=== PATIENT | female | born 1965 | race Caucasian/White ===

== ENCOUNTER 2024-08-12 10:24 | Emergency (ER) | payer OTHER, SELFPAY ==
[2024-08-12 10:37] VITALS: BP 128/60; PULSE 93; RESP 16; TEMP 36.9; O2SAT 100; BMI 20.5
--- NOTE | 2024-08-12 12:33 | ED.RECABL ---
HPI - Recheck/Abnormal Lab/Rx <Cande Mcneil PA-C - Last Filed: 08/12/24 14:18> General Chief Complaint: Recheck/Abnormal Lab/Rx Stated Complaint: medication refill Time Seen by Provider: 08/12/24 11:42 Source: patient Mode of arrival: Family Vehicle History of Present Illness HPI narrative: Ms. Martinez is a 58-year-old female with a past medical history of ADHD, anxiety, bipolar, itching, mood disorder, nicotine abuse, PTSD, suicidal ideation in the past who presents to the emergency department for medication refill. Patient was hospitalized in [place] last month for a suicide attempt and was started on numerous mental health medications. She just moved here to [facility]) because she has family in the area. She has not been able to establish care with a primary care doctor yet and needs refills of multiple medications including Xanax, Ritalin, Lexapro, lamotrigine, Risperdal, Effexor. She ran out of these medications 2 days ago. She attempted to go to clinics in [place] what they sent her to the Er for refills. She denies any symptoms at this time, no SI or HI. Related Data Previous Rx's Medication Instructions Recorded escitalopram oxalate 20 mg tablet 20 mg PO DAILY 30 days #30 tabs 08/12/24 lamotrigine 25 mg tablet 50 mg (2 x 25 mg) PO DAILY 30 days 08/12/24 #60 tabs risperidone 1 mg tablet 1 mg PO BID 30 days #60 tabs 08/12/24 venlafaxine 150 mg 150 mg PO DAILY #30 caps 08/12/24 capsule,extended release 24 hr Allergies Allergy/AdvReac Type Severity Reaction Status Date / Time Sulfa (Sulfonamide Allergy Hives Verified 08/12/24 10:41 Antibiotics) erythromycin base AdvReac Vomiting Verified 08/12/24 10:41 Review of Systems <Cande Mcneil PA-C - Last Filed: 08/12/24 14:18> Review of Systems ROS Unobtainable: All systems reviewed & are unremarkable except as noted in HPI and below Patient History <Cande Mcneil PA-C - Last Filed: 08/12/24 14:18> Social History Smoking Status: Former smoker Smoking Status: Former smoker tobacco type: cigarettes Exam <Cande Mcneil PA-C - Last Filed: 08/12/24 14:18> Narrative Exam Narrative: GENERAL: 58 year old patient appears stated age. Well-developed patient, in no acute distress. HEAD: Atraumatic. Normocephalic. NECK: Trachea midline. Cervical ROM intact. CARDIOVASCULAR: Regular rate RESPIRATORY: ?Nonlabored respirations. ?Speaking in clear, full sentences. NEURO: AOx3. ?Clear speech. ?Moves all 4 extremities appropriately. Good insight and judgment. SKIN: No rash or erythema of visible areas Initial Vital Signs Initial Vital Signs: Vital Signs Temperature 98.5 F 08/12/24 10:37 Pulse Rate 93 H 08/12/24 10:37 Respiratory Rate 16 08/12/24 10:37 Blood Pressure 128/60 08/12/24 10:37 Pulse Oximetry 100 08/12/24 10:37 Oxygen Delivery Method Room Air 08/12/24 10:37 <Rosy Dowd DO - Last Filed: 08/13/24 19:36> Initial Vital Signs Initial Vital Signs: Vital Signs Temperature 98.5 F 08/12/24 10:37 Pulse Rate 93 H 08/12/24 10:37 Respiratory Rate 16 08/12/24 10:37 Blood Pressure 128/60 08/12/24 10:37 Pulse Oximetry 100 08/12/24 10:37 Oxygen Delivery Method Room Air 08/12/24 10:37 Course <Cande Mcneil PA-C - Last Filed: 08/12/24 14:18> Orders Ordered: ED Orders 08/12/24 12:53 Consult to [facility] - [employer] Stat Vital Signs Vital signs: Vital Signs - 8 hr 08/12/24 10:37 Temperature 98.5 F Pulse Rate 93 H Respiratory Rate 16 Blood Pressure 128/60 Pulse Oximetry 100 Oxygen Delivery Method Room Air <Rosy Dowd DO - Last Filed: 08/13/24 19:36> Orders Ordered: ED Orders 08/12/24 12:53 Consult to [facility] - [employer] Mechanic Stat Vital Signs Vital signs: Vital Signs - 8 hr 08/12/24 10:37 Temperature 98.5 F Pulse Rate 93 H Respiratory Rate 16 Blood Pressure 128/60 Pulse Oximetry 100 Oxygen Delivery Method Room Air MDM - Recheck/Abnormal Lab/Rx <Cande Mcneil PA-C - Last Filed: 08/12/24 14:18> [facility] Narrative Medical decision making narrative: 58-year-old female with a past medical history of ADHD, anxiety, bipolar, itching, mood disorder, nicotine abuse, PTSD, suicidal ideation in the past who presents to the emergency department for medication refill. Patient was hospitalized in [place] last month for a suicide attempt and was started on numerous mental health medications. She just moved here to [facility]) because she has family in the area. She has not been able to establish care with a primary care doctor yet and needs refills of multiple medications including Xanax, Ritalin, Lexapro, lamotrigine, Risperdal, Effexor, Fiorcet. Differential diagnosis includes but is not limited to medication refill, withdrawal, etc. On exam patient is in no acute distress, nontoxic appearing, good insight and judgment, no SI or HI. She is requesting medication refills. Discussed with medication that is not appropriate refill benzodiazepines and stimulants in the emergency department. Reviewed all for hospital discharge paperwork confirming doses of all medications. Xanax was only prescribed for 7 days and was not meant to be long-term medication. Discussed with the patient that is not appropriate to refill methylphenidate I am unable to monitor patient. However did place a social work consult to try to get patient in urgently with the primary care doctor for all of her chronic medications to be reviewed and refilled. We will refill noncontrolled medications at this time including lamotrigine, risperidone, venlafaxine. Social work met with patient and placed referrals for primary care doctor and mental health doctor. Discussed strict ED return precautions with the patient, advised follow up with PCP. She verbalized understanding of all information is agreeable with the plan. She is stable for discharge home, requesting discharge home. Discharge Plan Departure Patient Disposition: Home Clinical Impression: Encounter for medication refill Activity Restrictions/Additional Instructions: Thank you for coming to the emergency department. Today you were evaluated for medication refills. I refilled escitalopram, venlafaxine, lamotrigine, risperidone. It is very important that you follow up with the primary care doctor to continue these refills and to refill any additional medications that you may need. Please follow up with your primary care doctor within the next 2-3 days for ER follow-up. (If you do not have a PCP you can call [phone]. ?to schedule an appointment with an [facility] Primary Care Provider) IF YOU DEVELOP ANY NEW OR WORSENING SYMPTOMS, RETURN TO THE ER! Please read the attached instructions, they highlight more specific treatments and interventions for you at home. Thank you for letting me participate in your care, Cande Mcneil PA-C Prescriptions: New venlafaxine 150 mg capsule,extended release 24hr 150 mg PO DAILY Qty: 30 0RF lamotrigine 25 mg tablet 50 mg PO DAILY 30 Days Qty: 60 0RF risperidone 1 mg tablet 1 mg PO BID 30 Days Qty: 60 0RF escitalopram oxalate 20 mg tablet 20 mg PO DAILY 30 Days Qty: 30 0RF Stand Alone Forms: Patient Portal/API/Survey ED Sign-out <Rosy Dowd DO - Last Filed: 08/13/24 19:36> Cosign ED Attending Koffiature Attestation: I was immediately available in the department for consultation.
--- NOTE | 2024-08-12 14:06 | CM.SWNOTE ---
ED CLINICAL DOCUMENTATION DEVELOPER Assessment Note: Pt is a 58yo female, resident of [place], is seen in the ED for request for medication refill. Pt has recently moved from [place]. Pt does not have a PCP established and insurance is Welfare [place] of state at this time. Reviewed chart and discussed with multidisciplinary team pt's medical status and initial discharge needs. CLINICAL DOCUMENTATION DEVELOPER consulted to assist with PCP establishment and possible MH Provider referral. CLINICAL DOCUMENTATION DEVELOPER entered room to meet with patient, introduced self and role. Pt endorses she is in the process of establishing with providers in the area. CLINICAL DOCUMENTATION DEVELOPER provided [facility] Finder contact information for pt to establish insurance. Pt also hopeful to establish with PCP and MH Provider to follow up on psych medications. Pt states she has no preference in provider or appointment time, CLINICAL DOCUMENTATION DEVELOPER sent message to Transitional Care Management Team and was requested that pt call the clinic number to establish care. Pt was provided with Clinic contact information. CLINICAL DOCUMENTATION DEVELOPER placed referral to [facility] in [place] with hopes pt can establish with chief petroleum engineer for MH prescriber. Provided contact information for [facility] to pt. CLINICAL DOCUMENTATION DEVELOPER reviews this with ED provider, ZEKE Castellon, who indicates agreement and understanding. Plan: Pt to discharge home and follow up with [facility] referral, PCP establishment. LIZABETH Frank
== END 2024-08-12 13:39 | disposition home or self-care (01) ==
PROVIDERS: Emergency Provider Physician Assistant
DX: Z76.0 Encounter for issue of repeat prescription (principal); F90.9 Attention-deficit hyperactivity disorder, unspecified type; F41.9 Anxiety disorder, unspecified; F31.9 Bipolar disorder, unspecified; F43.10 Post-traumatic stress disorder, unspecified; F39 Unspecified mood [affective] disorder
CPT/HCPCS: 99281